=== PATIENT | female | born 1995 | race African-American/Black ===

== ENCOUNTER 2021-06-20 23:23 | Emergency (ER) | payer BC, OTHER ==
[~2021-06-20] VITALS: Ht 157.5 cm; Wt 49.9 kg
--- NOTE | 2021-06-20 23:52 | NUR ---
CALLED SISTER, MOISES AND OBTAINED SOME INFORMATION FROM HER MOISES: [phone]
--- NOTE | 2021-06-21 | NUR ---
pt bibra c/o chest pain, and under arm pain. pt denies any pain at this time.pt placed on monitor.
--- NOTE | 2021-06-21 | NUR ---
YUDI AND [employer] FROM HOME FOR OVERDOSE. PER EMS "SHE HAD A WHOLE BAG OF GUMMIES.PT IS DROWSY. PT PLACED ON MONITOR.
--- NOTE | 2021-06-21 00:03 | NUR ---
COUSIN OSMAR [phone]
[2021-06-21] MEDS ORDERED: IV NS 0.9% 1,000 ML BAG IV ONE (00:30)
[2021-06-21 01:14] LABS: BASOPHILS % (AUTO) 0.3 % (0.0-2.0); EOSINOPHILS % (AUTO) 0.6 % (0.0-6.0); HEMATOCRIT 38 % (33-45); HEMOGLOBIN 12.6 g/dL (11.5-14.8); LYMPHOCYTES # (AUTO) 2.1 K/uL (0.8-4.8); LYMPHOCYTES % (AUTO) 33.3 % (20.0-44.0); MEAN CORPUSCULAR HGB CONC 33 g/dl (31.0-36.0); MEAN CORPUSCULAR VOLUME 90 fL (82-100); MONOCYTES # (AUTO) 0.6 K/uL (0.1-1.30); MONOCYTES % (AUTO) 9.5 % (2.0-12.0); NEUTROPHILS # (AUTO) 3.5 K/uL (1.8-8.9); NEUTROPHILS % (AUTO) 56.3 % (43.0-81.0); PLATELET COUNT (AUTO) 218 K/uL (150-450); RED BLOOD CELL COUNT(AUTO) 4.22 MIL/uL (4.0-5.2); WHITE BLOOD COUNT (AUTO) 6.3 K/uL (4.3-11.0)
[2021-06-21 01:27] LABS: CALCIUM, SERUM 8.8 mg/dL (8.5-10.1); CARBON DIOXIDE 27 mmol/L (21-32); CHLORIDE 102 mmol/L (98-107); GLUCOSE 91 mg/dL (74-106); POTASSIUM 3.7 mmol/L (3.5-5.1); SODIUM SERUM 137 mmol/L (136-145); UREA NITROGEN, BLOOD 13 mg/dL (7-18)
[2021-06-21 01:34] LABS: ALANINE AMINOTRANSFERASE 19 U/L (12-78); ALCOHOL, BLOOD < 3 mg/dL (0-0); ALKALINE PHOSPHATASE 40 U/L (46-116); ASPARTATE AMINOTRANSFERASE 22 U/L (15-37); BILIRUBIN,DIRECT 0.1 mg/dL (0.0-0.2); BILIRUBIN,TOTAL 0.5 mg/dL (0.2-1.0); TOTAL PROTEIN, SERUM 8.1 g/dL (6.4-8.2)
[2021-06-21 01:39] LABS: ACETAMINOPHEN 0 ug/ml (10-30)
[2021-06-21 03:16] LABS: BILIRUBIN,URINE NEGATIVE (NEGATIVE); COLOR,URINE YELLOW (YELLOW); LEUKOCYTE ESTERASE ,URINE NEGATIVE (NEGATIVE); NITRITE, URINE NEGATIVE (NEGATIVE); PROTEIN,URINE NEGATIVE (NEGATIVE); UGLUCOSE NEGATIVE (NEGATIVE); UROBILINOGEN,URINE 0.2 EU/dL (0.2)
--- NOTE | 2021-06-21 05:08 | NUR ---
SISTER IS VISITING THE PT. AWARE OF THE COVID SITUATION.
--- NOTE | 2021-06-21 05:19 | NUR ---
CALLED [facility]. SHE WILL COME HERE SOON.
--- NOTE | 2021-06-21 07:15 | NUR ---
HOLD WAS BROKEN PER CLINICIAN
--- NOTE | 2021-06-21 07:48 | NUR ---
IV removed. Catheter intact and site benign. Pressure and 4x4 applied to site. No bleeding noted.Patient discharged to home in stable condition. Written and verbal after care instructions given. Patient verbalizes understanding of instruction.
[2021-06-21 07:49] VITALS: BP 128/82
== END 2021-06-21 07:49 | disposition home or self-care (01) ==
LOC: ER 23:26
DX: T40.712A Poisoning by cannabis, intentional self-harm, initial encounter (principal); R00.0 Tachycardia, unspecified; Y92.019 Unspecified place in single-family (private) house as the place of occurrence of the external cause; U07.1 COVID-19; R45.851 Suicidal ideations
CPT/HCPCS: 36415; 80048; 80076; 80143; 80307; 80320; 81003; 84703; 85025; 87426; 93005; 96360; 99285; C9803; G0480